=== PATIENT | female | born 1980 | race Hispanic/Latino ===

== ENCOUNTER 2018-04-28 19:57 | Emergency (ER) | payer SELFPAY ==
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
[2018-04-28] MEDS ORDERED: CYCLOBENZAPRINE10 M1 PO (23:31)
[2018-04-28] MEDS ORDERED: IBUPROFEN800 M1 PO (23:31)
[2018-04-28 23:37] VITALS: BP 108/64
== END 2018-04-28 23:37 ==
LOC: ERH 19:57
DX: S09.90XA Unspecified injury of head, initial encounter (principal); S16.1XXA Strain of muscle, fascia and tendon at neck level, initial encounter; R51 Headache; M79.601 Pain in right arm; V89.2XXA Person injured in unspecified motor-vehicle accident, traffic, initial encounter
CPT/HCPCS: 71046; 73030-RT; 73090-RT; 73130-RT; 81025